=== PATIENT | female | born 1970 | race Caucasian/White ===

== ENCOUNTER 2018-07-31 21:38 | Emergency (ER) | payer SELFPAY ==
[~2018-07-31] VITALS: Ht 154.9 cm; Wt 113.4 kg
[2018-07-31 21:41] VITALS: Ht 154.9 cm; Wt 113.4 kg
[2018-07-31 22:25] LABS: PLATELET COUNT 276 x10^3mcL (130-400); RED CELL DISTRIBUTION WIDTH 13.6 % (11.5-14.5)
[2018-07-31 22:28] LABS: BASOPHIL % 0 % (0-2)
[2018-07-31 23:05] LABS: CALCIUM 8.8 mg/dL (8.5-10.1); CARBON DIOXIDE 24.9 mmol/L (21-32); CHLORIDE SERUM 102 mmol/L (98-107); CREATININE SERUM 0.7 mg/dL (0.6-1.0); GFR1 > 60 mL/min; GLUCOSE SERUM 119 mg/dL (74-106); SODIUM SERUM 136 mmol/L (136-145)
[2018-07-31 23:11] LABS: ALBUMIN 3.4 g/dL (3.4-5.0); ALKALINE PHOSPHATASE 129 U/L (46-116); ALT/SGPT 36 U/L (14-59); AST/SGOT 55 U/L (15-37); BILIRUBIN TOTAL 0.65 mg/dL (0.20-1.00); LIPASE 145 IU/L (73-393)
[2018-07-31 23:14] LABS: TOTAL PROTEIN, SERUM 8.4 g/dL (6.4-8.2)
[2018-08-01 00:36] VITALS: BP 112/84
== END 2018-08-01 00:36 | disposition home or self-care (01) ==
LOC: ED 21:38
PROVIDERS: Emergency Medicine
DX: N20.0 Calculus of kidney (principal); Z98.51 Tubal ligation status
CPT/HCPCS: J1885; J2405; J7030